=== PATIENT | female | born 1930 | race Caucasian/White ===

== ENCOUNTER 2019-12-06 10:48 | Emergency (ER) | payer OTHER ==
[~2019-12-06] VITALS: Ht 144.8 cm; Wt 66.2 kg
[~2019-12-06 10:48] MED LIST: CAR30 PO; COLACE100 MG PO; COR200 PO; DIG125 PO; GLIPIZIDE2.5 M1 PO; LEVOTHYROXIN0.125 M2 PO; METOPROLOL SUCC50 M2 PO; METOPROLOL TART25 M1 PO; SIMVASTATIN10 M1 PO; XARELTO10 M1 GT; XARELTO10 M1 PO; ZOC20 PO
[2019-12-06 11:08] VITALS: Ht 144.8 cm; Wt 66.2 kg
[2019-12-06 11:52] VITALS: BP 152/62
== END 2019-12-06 11:52 | disposition home or self-care (01) ==
LOC: ED 10:48
DX: R21 Rash and other nonspecific skin eruption (principal); L29.9 Pruritus, unspecified; I10 Essential (primary) hypertension; E11.9 Type 2 diabetes mellitus without complications; E78.5 Hyperlipidemia, unspecified; I48.91 Unspecified atrial fibrillation